=== PATIENT | male | born 1980 | race Hispanic/Latino ===

== ENCOUNTER 2016-12-10 08:33 | Emergency (ER) | payer OTHER ==
[~2016-12-10] VITALS: Ht 175.3 cm; Wt 118.2 kg
[~2016-12-10 08:33] MED LIST: CHOL100045 PO; DOXY100C2 PO; IBUP-1827 PO; NAPR550T44 PO; TRAZ-115 PO
[2016-12-10 08:40] VITALS: BP 134/83; PULSE 62; RESP 16; O2SAT 98
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
[2016-12-10] MEDS ORDERED: IBUP800T28 PO (09:52)
[2016-12-10] MEDS ORDERED: Triamcinolone Acet 40 mg/mL 5 mL Inj INTRARTICU ONE (09:55)
[2016-12-10] MEDS ORDERED: Lidocaine 1% 50 mL Inj NERVEBLOCK ONE (09:55)
[2016-12-10] MEDS ORDERED: Triamcinolone Acet 40 mg/mL 1 mL Inj ARTICULAR ONE (10:05)
[2016-12-10] MEDS ORDERED: Triamcinolone Acet 40 mg/mL 1 mL Inj IM ONE (10:05)
== END 2016-12-10 10:36 | disposition home or self-care (01) ==
LOC: SED 08:33
DX: M77.11 Lateral epicondylitis, right elbow (principal); X50.3XXA Overexertion from repetitive movements, initial encounter; Y93.89 Activity, other specified; Y92.89 Other specified places as the place of occurrence of the external cause; Y99.0 Civilian activity done for income or pay; R73.03 Prediabetes
CPT/HCPCS: 20605; 99284; J3301

== ENCOUNTER 2016-12-13 06:52 | Emergency (ER) | payer OTHER ==
[~2016-12-13] VITALS: Ht 175.3 cm; Wt 118.2 kg
[~2016-12-13 06:52] MED LIST changes: +IBUP800T28 PO
[2016-12-13 06:55] VITALS: BP 139/84; PULSE 65; RESP 15; O2SAT 97
--- NOTE | 2016-12-13 07:08 | ED.REPORT ---
HPI-Extremity Problem Upper Date of Service December 13, 2016 ED Provider: Phuc Cantu MD 36 year old male presents to the ER complaining of several months of right elbow pain. Pain radiates up into his right shoulder. Patient denies any recent trauma to the affected arm, history of blood clots, recent surgeries and recent immobilization or travel. He was seen by me here in the department four days ago for similar, at which time I administered a steroid injection and diagnosed him with lateral epicondylitis. After the injection his symptoms improved, but have gradually returned over the past few days. Nursing Notes Stated Complaint: RIGHT ARM PAIN Chief Complaint: Extremity Trauma Nursing Notes Reviewed: Yes Allergies: Coded Allergies: No Known Allergies (Unverified , 02/14/16) Scheduled Cholecalciferol (Vitamin D3) (Vitamin D) 1,000 Unit Capsule 1,000 UNIT PO DAILY Doxycycline Hyclate (Doxycycline Hyclate) 100 Mg Capsule 100 MG PO DAILY Trazodone (Trazodone) 50 Mg Tablet 50 MG PO TID Scheduled PRN Ibuprofen (Ibuprofen) 600 Mg Tablet 600 MG PO TID PRN PRN For Pain Ibuprofen (Ibuprofen) 800 Mg Tablet 800 MG PO TID PRN PRN For Pain Naproxen Sodium (Naproxen Sodium) 550 Mg Tab 550 MG PO BID PRN PRN For Pain General Time Seen by MD: 07:07 Chief Complaint Elbow injury right Hx Obtained From: Patient Arrived By: Walk-in Onset Occurred: More than a week ago... (3 months) Symptom Duration: Since onset Caused by: Mechanism unknown Location: : Elbow left Quality: Painful Severity: Current: Moderate Severity: Maximum: Moderate Pertinent Negative: Pt denies other symptoms Pertinent Negative: Relieved by nothing Recent Healthcare: Recent doctor visit Past Medical History Past Medical History Notes: PCP: Dr. Luca Arrieta Past Medical History Pre-diabetic Past Surgical History scalp surgery Family History Father Reports: Diabetes mellitus, Hypertension Smoking History Never Smoker Social History Alcohol Use: In recovery Other Social History: , Local resident Ambulatory Status Independent Review of Systems Constitutional: Denies: Chills, Fever Musculoskeletal: Reports: Joint pain (Right Elbow), Denies: Back pain, Lumbar pain, Neck pain, Thoracic pain Complete sys rev & neg: except as marked. Physical Exam Initial Vital Signs Vital Signs (First) Date Time Temp Pulse Resp B/P Pulse Ox O2 Delivery O2 Flow Rate FiO2 12/13/16 06:55 36.4 65 15 139/84 97 Room Air Initial VS: Reviewed General/Constitutional: Well-developed, Well-nourished Head / Eyes: Atraumatic, Normocephalic Neck: Supple, Non-tender, Full range of motion Lower Extremities: Vascular intact, Neuro intact, No swelling, No tenderness Skin: Warm, Dry, No cyanosis Neurologic: Alert, Oriented, Nonfocal Psychiatric: Mood/affect normal, Behavior normal, Normal thought content Upper Extremity / MS: Full range of motion, Neurologic intact, Vascular intact Right Elbow: Positive: Tenderness present... (over lateral epicondyle) Interpretation & Diagnostics X-Ray Interpretation Xray Interpretation: IMPRESSION: Minimal hypertrophic bone indicating early joint degeneration. Dictated by: Armando MCHUGH Interpreted: Sabrina Man MD on 12/13/2016 at 8:56 Transcribed by: THOMAS on 12/13/2016 at 8:57 X-Ray Ordered: Elbow right Interpretation / Wet Read by: Interpret - Radiologist Re-Eval/Medical Decision Med Decision/Clinical Course 36-year-old male with right elbow pain recently diagnosed with lateral epicondylitis. Had steroid injection with lidocaine performed 3 days ago. The symptoms were improved throughout that day but now have returned. He has no neurological deficits. He has no risk factors for DVT. He has no sign symptoms of infection. Likely his steroids have not kicked in for his lateral Epicondylitis. X-ray shows no fracture. He is advised to follow-up with primary doctor early next week or tomorrow. Return if any sign symptoms worsening swelling, fevers, worsening pain, neurological deficits, any other new or worsening symptoms. Re-Evaluation/Progress : Time of Eval: 08:52 Re-Evaluation/Progress Note: Discussed imaging results and plan to discharge. Patient is amenable to the plan. Return precautions given. All other questions addressed. Counseled Regarding: Diagnosis, Need for follow-up, When/why to return to ED Discharge & Departure Impression: Primary Impression: Lateral epicondylitis of elbow Additional Impression: Elbow pain Disposition: Home Discharge Condition All VS Reviewed: Yes Condition: Stable Additional Instructions: Your evaluation today is reassuring. I do not believe that there is any dangerous cause for your pain. I believe that this is the same pain you have been experiencing related to the inflammation of a tendon in your elbow. It takes some time for the steroids I gave you at your last visit to take effect. You deny a history of blood clots, and have no risk factors, so I do not think testing for blood clots makes sense at this time. Your x-ray looks good, there is no sign of fracture. Keep your elbow wrapped, and ice three times daily for 20 minutes at a time. Take ibuprofen as prescribed for pain. Keep your appointment with your primary care provider. Return to the ER if you develop worsening swelling, pain, fever, redness, nausea /vomiting, chest pain, difficulty breathing, or any other concerning symptoms. Referrals: Isabelle Segovia MD (PCP) Raeibjavad Attestation Portions of this note were transcribed by Zac Lemus. I, Dr. Cantu, personally performed the history, physical exam and medical decision-making; I reviewed and confirmed the accuracy of the information in the transcribed note. Signed by: Juliana Gallego, 12/13/2016 at 09:10 copies to: Isabelle Segovia MD Risk-Extremity Prob Lower Well's Criteria for DVT Well's DVT Score: 0 pts (low risk 5%) Phuc Cantu MD December 13, 2016 07:08 ZAC LEMUS December 13, 2016 07:16
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
[2016-12-13 09:16] VITALS: BP 141/88; PULSE 59; RESP 16; O2SAT 99
== END 2016-12-13 09:17 | disposition home or self-care (01) ==
LOC: SED 06:52
DX: M77.11 Lateral epicondylitis, right elbow (principal); R73.03 Prediabetes
CPT/HCPCS: 73080; 96372; 99284; J1885